=== PATIENT | female | born 1960 | race Caucasian/White ===

== ENCOUNTER 2020-12-22 13:41 | Emergency (ER) | payer MEDICAID ==
[~2020-12-22] VITALS: Ht 170.2 cm; Wt 81.6 kg
--- NOTE | 2020-12-22 13:45 | NUR ---
BIB [facility] AND [facility] FOR ERRATIC BEHAVIOR. PATIENT IS AWAKE BUT IS NOTVERBAL. VITAL SIGNS STABLE. SHE WAS BROUGHT IN HAND CUFFED.
--- NOTE | 2020-12-22 14:00 | NUR ---
UNABLE TO DO SUICIDE SCREEN DUE TO ALTERED MENTAL STATUS. PATIENT DOES NOT ANSWER QUESTIONS APPROPRIATELY
[2020-12-22] MEDS ORDERED: LORAZEPAM 2 MG/1 ML VIAL ONE (14:28)
[2020-12-22] MEDS ORDERED: HALOPERIDOL LACTATE 5 MG/1 ML VIAL ONE (14:28)
[2020-12-22] MEDS ORDERED: HALOPERIDOL LACTATE 5 MG/1 ML VIAL IM ONE (14:30)
[2020-12-22] MEDS ORDERED: LORAZEPAM 2 MG/1 ML VIAL IM ONE (14:30)
[2020-12-22] MEDS ORDERED: IV NS 1000 ML 1,000 ML IV ONE (14:30)
[2020-12-22] MEDS ORDERED: KETAMINE HCL 500 MG/10 ML INJ IM ONE ×2 (15:15→16:30)
[2020-12-22] MEDS ORDERED: KETAMINE HCL 500 MG/10 ML INJ ONE ×2 (15:29→16:33)
--- NOTE | 2020-12-22 16:29 | NUR ---
patient is still yelling and is very agitated. Dr Beavers notified.
[2020-12-22 16:32] LABS: BASOPHILS % (AUTO) 0.2 % (0.0-2.0); HEMOGLOBIN 13.5 g/dL (10.9-14.3); LYMPHOCYTES # (AUTO) 1.7 K/uL (20.0-40.0); LYMPHOCYTES % (AUTO) 29.4 % (20.5-51.5); MEAN CORPUSCULAR HEMOGLOBIN 27.7 uug (24.7-32.8); MEAN CORPUSCULAR HGB CONC 33 g/dL (32.3-35.6); MEAN CORPUSCULAR VOLUME 84.4 fL (75.5-95.3); MONOCYTES # (AUTO) 0.4 K/uL (2.0-10.0); MONOCYTES % (AUTO) 6.8 % (0.0-11.0); NEUTROPHILS # (AUTO) 3.6 K/uL (1.8-8.9); NEUTROPHILS % (AUTO) 63.6 % (38.5-71.5); PLATELET COUNT (AUTO) 98 K/uL (179-408); RED BLOOD CELL COUNT(AUTO) 4.86 MIL/uL (3.63-4.92); WHITE BLOOD COUNT (AUTO) 5.7 K/uL (3.8-11.8)
[2020-12-22 16:39] LABS: CARBON DIOXIDE 24 mmol/L (21-32); CHLORIDE 104 mmol/L (98-107); CREATININE 0.5 mg/dL (0.6-1.3); GLUCOSE 154 mg/dL (74-106); POTASSIUM 3.5 mmol/L (3.5-5.1); UREA NITROGEN, BLOOD 3 mg/dL (7-18)
[2020-12-22 16:40] LABS: ETHANOL < 3 MG/DL (0-0)
[2020-12-22 16:45] LABS: ALANINE AMINOTRANSFERASE 17 U/L (14-59); ALKALINE PHOSPHATASE 79 U/L (50-136); ASPARTATE AMINOTRANSFERASE 15 U/L (15-37); BILIRUBIN,DIRECT 0.1 mg/dL (0.0-0.2); BILIRUBIN,TOTAL 0.5 mg/dL (0.2-1.0); CREATINE KINASE, TOTAL 263 U/L (26-192); TOTAL PROTEIN, SERUM 6.8 g/dL (6.4-8.2)
[2020-12-22 16:47] LABS: ACETAMINOPHEN < 2.0 ug/mL (10-30)
[2020-12-22 16:53] LABS: THYROID STIMULATING HORMONE 3.151 mIU/mL (0.358-3.740)
--- NOTE | 2020-12-22 17:35 | NUR ---
patient is sleeping intermittently. Urine sent to lab. Vital signs stable. patient still cannot tell us her name or anything else about her. She has rashes under both her breasts, Dr meza examined her
[2020-12-22 18:12] LABS: *BILIRUBIN,URIN NEGATIVE (NEGATIVE); *BLOOD, URINE 1+ (NEGATIVE); *CLARITY,URINE CLOUDY (CLEAR); *COLOR,URINE YELLOW (YELLOW); *KETONES,URINE NEGATIVE (NEGATIVE); *UROBILINOGEN,URINE 0.2 E.U./dl (NORMAL); LEUKOCYTE ESTERASE ,URINE 1+ (NEGATIVE); NITRITE, URINE POSITIVE (NEGATIVE); UGLUCOSE NEGATIVE (NEGATIVE)
[2020-12-22 18:22] LABS: BACTERIA,URINE MANY /HPF (NONE SEEN)
[2020-12-22 18:23] LABS: *AMPHETAMINE, URINE NEGATIVE (NEGATIVE); *CANNABINOID, URINE NEGATIVE (NEGATIVE); *COCCAINE, URINE NEGATIVE (NEGATIVE); *OPIATE, URINE NEGATIVE (NEGATIVE); *PHENCYCLIDINE SCREEN,URINE NEGATIVE (NEGATIVE)
[2020-12-22] MEDS ORDERED: ONDANSETRON 4 MG/2 ML VIAL IV ONE (18:30)
[2020-12-22] MEDS ORDERED: ONDANSETRON 4 MG/2 ML VIAL ONE (18:40)
--- NOTE | 2020-12-22 18:40 | NUR ---
GUSTAVO VOMITED WHEN SHE CAME BACK FROM CT SCAN. DR BROWN NOTIFIED. ZOFRAN GIVEN ORDERED. PATIENT KEEPS REMOVING THE CARDIAC SPO2 MONITOR. I REAPPLIED IT
--- NOTE | 2020-12-22 19:30 | NUR ---
Sitter at bedside for 1:1 monitoring.
--- NOTE | 2020-12-22 22:30 | NUR ---
Elizabeth gallardo in ED - 12/23/[address] Martinez medically cleared patient.
[2020-12-22 22:33] LABS: NEUTROPHILS % (MANUAL) 64 % (42-75)
[2020-12-22 22:34] LABS: LYMPHOCYTES % (MANUAL) 29 % (20-40); MONOCYTES % (MANUAL) 7 % (2-10)
--- NOTE | 2020-12-22 23:30 | NUR ---
Patient medically cleared by Dr. Martinez.
--- NOTE | 2020-12-22 23:35 | NUR ---
Called Ana Laura Mejia RN PET for pt psych eval, left message.
--- NOTE | 2020-12-22 23:48 | NUR ---
Ana Laura Mejia RN PET called back, eta 1 hour.
--- NOTE | 2020-12-23 00:37 | NUR ---
Ana Laura Mejia RN PET arrived to ER for patient psych evaluation.
[2020-12-23] MEDS ORDERED: HALOPERIDOL LACTATE 5 MG/1 ML VIAL IM ONE (05:00)
[2020-12-23] MEDS ORDERED: HALOPERIDOL LACTATE 5 MG/1 ML VIAL ONE (05:08)
--- NOTE | 2020-12-23 06:35 | NUR ---
Patient called sister, Ivy, , states that she can pick patient up at 1030 am, [place] [address] [place] [address]
--- NOTE | 2020-12-23 06:47 | NUR ---
Report given to Myah mcwilliams.
--- NOTE | 2020-12-23 07:20 | NUR ---
Patient eloped from facility. ER physician Mk notified.
== END 2020-12-23 07:22 | disposition left against medical advice (07) ==
LOC: EDBD 13:41 → ER 13:41 → TELE3 20:12 → UNDOADMIN 20:12 → ER 12-23 07:22
DX: R41.82 Altered mental status, unspecified (principal); R46.2 Strange and inexplicable behavior; R45.851 Suicidal ideations; R05 Cough; Z20.822 Contact with and (suspected) exposure to COVID-19
CPT/HCPCS: 36415; 70450; 80048; 80076; 80299; 80307; 80320; 81001; 82550; 82962; 84443; 84484; 85007; 85025; 87077; 87086; 87186; 87426; 93005; 96360; 96361; 96372 ×2; 99285; J1630 ×2; J2060; J2405; J3490 ×2; 70030-TC; A4663; G0480; J7030

== ENCOUNTER 2021-02-02 14:03 | Emergency (ER) | payer MEDICAID ==
[~2021-02-02] VITALS: Ht 172.7 cm; Wt 81.6 kg
--- NOTE | 2021-02-02 14:25 | NUR ---
Pt stated she needs to smoke a cigarette and will be right back. Pt denies any suicidal ideation and walked out of ER with steady gait.
--- NOTE | 2021-02-02 14:30 | NUR ---
Pt ambulated back into ER room 3 with steady gait.
--- NOTE | 2021-02-02 14:40 | NUR ---
Attempted to obtain urine specimen, pt stated she needs cranberry juice and Ensure first. Pt was provided with cranberry juice and Ensure and drank both.
--- NOTE | 2021-02-02 14:50 | NUR ---
Pt eloped. The aerial gunner stated when she put a tourniquet on the pt's arm for blood draw the pt stated she is allergic to needles, took the tourniquet off and walked out of the room and the ER.
== END 2021-02-02 15:10 | disposition left against medical advice (07) ==
LOC: ER 14:03
DX: Z53.21 Procedure and treatment not carried out due to patient leaving prior to being seen by health care provider (principal)
CPT/HCPCS: A4663